=== PATIENT | male | born 1950 | race Caucasian/White ===

== ENCOUNTER 2020-03-25 19:57 | Observation (INO) | payer OTHER, SELFPAY ==
--- NOTE | ~2020-03-25 | CT_ITS ---
EXAMINATION: CT brain wo con DATE: 03/25/2020 21:43 INDICATION: Altered mental state TECHNIQUE: Computed tomography (CT) of the head was performed without intravenous contrast. The mA wa s adjusted according to patient size. Iterative reconstruction technique was employed. Exam dose: 68 1.00 mGy-cm total exam DLP. COMPARISON: 09/18/2018 CT brain FINDINGS: No intracranial mass lesion or hemorrhage, midline shift or mass effect or cerebrovascular accident is evident. Vertebral and basilar and carotid siphon internal carotid artery calcifications are noted. There is n onspecific diminished attenuation of the cerebral white matter, likely due to chronic small vessel is chemic changes. No subdural or epidural hematoma. There is a stable lytic lesion of the right occipital bone, unchanged since 09/08/2018 Otherwise no fracture or bone destruction of the cranial vault. IMPRESSION: Cerebral atherosclerosis and chronic small vessel ischemic changes of the cerebral white matter Stable lytic lesion of right occipital bone since 09/18/2018 Reviewed, dictated and finalized at [facility] Reviewed, dictated and finalized at [facility].
--- NOTE | ~2020-03-25 | XR_ITS ---
EXAMINATION: XR chest 1V portable INDICATION: Shortness of breath TECHNIQUE: Portable AP chest at 2100 hours COMPARISON: 12/04/2015 FINDINGS: The lungs are free of acute opacities. There is no pleural effusion or pneumothorax. The ca rdiomediastinal silhouette is normal. The visualized bones and soft tissues are unremarkable. IMPRESSION: 1. No acute cardiopulmonary abnormality. Reviewed, dictated and finalized at [facility].
[2020-03-25 20:00] VITALS: BP 108/96; PULSE 98; RESP 20; TEMP 36.6; O2SAT 96
--- NOTE | 2020-03-25 20:36 | ED.SOB ---
HPI - SOB/Dyspnea General Chief Complaint: Shortness of Breath/Dyspnea Stated Complaint: sob Time Seen by Provider: 03/25/20 20:35 Source: patient, family and EMS Mode of arrival: EMS Limitations: clinical condition History of Present Illness HPI Narrative: Patient is a 69-year-old male with a history of referral vascular disease, COPD, lumbar spondylosis, hyperlipidemia who presents for evaluation of shortness of breath. Patient reportedly began to feel short of breath this evening after leaving [employer], so an ambulance was called. Patient was given a DuoNeb in route for audible wheezing, and patient was brought here for assessment. Time of assessment, patient reports shortness of breath has resolved. He denies chest pain. 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 Patient is very anxious appearing, rhythmic motion to arms and legs, she states he is very clicky. Patient denying alcohol use today, but patient appears very intoxicated to me. Related Data Home Medications Medication Instructions Recorded Confirmed aspirin 81 mg tablet,delayed 81 mg PO DAILY 08/13/19 release gabapentin 300 mg capsule 300 mg PO TID 08/13/19 clopidogrel 03/25/20 Allergies Allergy/AdvReac Type Severity Reaction Status Date / Time bee pollen Allergy Severe SOB Verified 03/25/20 20:10 Penicillins Allergy Unknown SOB Verified 03/25/20 20:10 Review of Systems Review of Systems: ROS unobtainable: Yes unobtainable due to mental status PMFSH Past Medical History Medical History Atherosclerosis of aorta without gangrene Chronic pain Chronic pain disorder Inflammatory arthritis Neuropathy PVD (peripheral vascular disease) with claudication Spondylolysis, thoracolumbar region Surgical History Surgical History S/P insertion of iliac artery stent Family History Family History (Updated 03/23/15 @ 13:55 by DOCTOR UNKNOWN) Father Family history of heart disease in male family member before age 55 Patient's father is Mother Family history of heart disease in male family member before age 55 Patient's mother is Social History Social History Smoking status: Former smoker Tobacco type: cigarettes Second hand tobacco smoke exposure: No Smoking end date: 09/01/15 Alcohol intake: current Substance use: never Substance use type: does not use Gender identity (if verbalized by the patient): Male Exam Narrative: Exam Narrative: GENERAL: Awake, alert, conversant, anxious, intoxicated HEAD: Normocephalic, atraumatic. EYES: PERRLA and EOMI. ENT: Nares clear, no rhinorrhea or epistaxis. Mucous membranes moist. NECK: Supple. CHEST: No respiratory distress, breathing even and non labored, mild expiratory wheezing bilateral lower lobes HEART: Regular rate, sinus rhythm ABDOMEN:Non distended, non tender EXTREMITIES: Normal range of motion. No edema. SKIN: Warm, dry, no rash. NEURO:No focal deficits. Alert and oriented x2, oriented to person place, not oriented to time, can identify the president Course Vital Signs Vital signs: Vital Signs Temperature 36.6 C 03/25/20 20:00 Pulse Rate 98 03/25/20 20:00 Respiratory Rate 20 03/25/20 20:00 Blood Pressure 108/96 H 03/25/20 20:00 Pulse Oximetry 96 03/25/20 20:00 Temperature 36.6 C 03/25/20 20:00 Pulse Rate 82 03/26/20 01:00 Respiratory Rate 14 03/26/20 01:00 Blood Pressure 107/87 03/26/20 01:00 Pulse Oximetry 98 03/26/20 01:00 MDM - SOB/Dyspnea MDM Narrative Medical decision making narrative: Patient given a Duo
--- NOTE | 2020-03-25 20:46 | ECG_ITS ---
Measurements Intervals [place] Rate: 89 P: 66 MD: 138 QRS: 68 QRSD: 137 T: 50 QT: 434 QTc: 529 Interpretive Statements SINUS RHYTHM RIGHT BUNDLE BRANCH BLOCK ABNORMAL ECG Electronically Signed On 03-26-2020 7:11:43 CDT by Jones Moss D.O.
[2020-03-25] MEDS: ALBUTEROL SULFATE NEB 2.5 MG/0.5 ML INH 5 MG INHALATION (21:03)
[2020-03-25] MEDS: IPRATROPIUM BR 0.02% INH SOLN 0.5 MG/2.5 ML VIAL INHALATION (21:03)
[2020-03-25 21:12] VITALS: PULSE 98; RESP 16
[2020-03-25 21:14] LABS: Alveolar/Arterial O2 Gradient 43.9 mmHg; Base Excess ABG -2.8 mEq/l (+/-2.0); Fractional Inspired Oxygen 21 %; HCO3 ABG 20.4 mEq/l (22.0-26.0); Oxygen Content ABG 19.3 %vol (16.0-22.0); Oxygen Saturation ABG 94.3 % (95.0-100.0); Oxyhemoglobin 89.7 % THb (90.0-100.0); PCO2 ABG 31.5 mmHg (35.0-45.0); PO2 ABG 68.1 mmHg (80.0-100.0); PO2 FiO2 Ratio Arterial Blood 3.24 %; Total Hemoglobin 15.3 g/dL (12.0-18.0); pH ABG 7.429 (7.350-7.450)
[2020-03-25 21:15] VITALS: BP 102/63; PULSE 95; RESP 26; O2SAT 100
[2020-03-25 21:16] LABS: Device ROOM AIR; Modified Allen's Test Pass; Site Drawn RIGHT RADIAL
[2020-03-25 21:21] VITALS: PULSE 95; RESP 18
[2020-03-25 21:24] LABS: Basophils Absolute Auto 0.1 K/mm3 (0.0-0.1); Eosinophils Absolute Auto 0.4 K/mm3 (0-0.3); Eosinophils Percent Auto 3.9 % (0-4.4); Hematocrit 42.5 % (42.0-52.0); Hemoglobin 14.6 g/dL (14.0-18.0); Immature Granulocyte Absolute 0.03 K/mm3 (0.00-0.031); Immature Granulocyte Percent A 0.3 % (0-0.5); Lymphocytes Absolute Auto 2.17 K/mm3 (0.9-3.2); Lymphocytes Percent Auto 24.1 % (18.3-44.2); Mean Corpuscular HGB Conc 34.4 g/dl (32-36); Mean Corpuscular Hemoglobin 31.5 pg (26-34); Mean Corpuscular Volume 91.6 fl (80-100); Mean Platelet Volume 8.9 fl (7.4-10.4); Monocytes Absolute Auto 0.4 K/mm3 (0.1-0.6); Monocytes Percent Auto 4.1 % (2.6-8.5); Neutrophils Percent Auto 66.6 % (45.5-73.1); Platelet Count Result 253 k/mm3 (150-375); Red Blood Count 4.64 M/mm3 (4.6-6.20); Red Cell Distribution Width 13.4 % (11.5-14.5)
[2020-03-25 21:34] LABS: Partial Thromboplastin Time 27.2 SECONDS (22.3-36.8); Prothrombin Time 12.6 Seconds (11.1-14.7)
[2020-03-25 21:37] LABS: Lactic Acid Reflex 3.4 mmol/L (0.7-2.1)
[2020-03-25 21:38] LABS: Alanine Aminotransferase 13 U/L (4-50); Albumin Level 4.2 g/dL (3.5-5.1); Alkaline Phosphatase 93 U/L (38-126); Anion Gap 14.3 mmol/L (7-16); Aspartate Amino Transferase 26 U/L (17-59); Bilirubin,Total 0.4 mg/dL (0.2-1.3); Blood Urea Nitrogen 5 mg/dL (9-20); Carbon Dioxide 22 mmol/L (22-30); Chloride 102 mmol/L (98-107); Estimated CRCL calculation 56 ml/min; Estimated Glomerular Filt Rate > 60; Glucose 114 mg/dL (75-110); Potassium 3.3 mmol/L (3.4-5.0); Sodium 135 mmol/L (137-145)
[2020-03-25 21:39] LABS: Ethanol 187 mg/dL (<10)
[2020-03-25 21:50] LABS: Troponin I < 0.012 ng/mL (0.000-0.034)
[2020-03-25 22:02] LABS: Add Urine Microscopic? NO; Appearance Urine Clear (Clear); Bilirubin Urine Negative (Negative); Blood Urine Negative (Negative); Color Urine Colorless (Yellow); Glucose Urine UA Negative (Negative); Ketones Urine Negative (Negative); Leukocyte Esterase Ur Negative LEU/UL (Negative); Nitrate Urine Negative (Negative); Protein Urine Negative (Negative); Urobilinogen Urine Negative mg/dL (<2.0)
[2020-03-25] MEDS: methylPREDNISolone SOD SUCC 125 MG VIAL IV PUSH (22:09)
[2020-03-25 22:14] LABS: Specific Grav Ur 1.004 (1.001-1.035)
[2020-03-25 22:27] LABS: Barbiturate Screen Urine Negative (Negative); Benzodiazepines Screen Urine Negative (Negative)
[2020-03-25 22:28] LABS: Amphetamine Screen Urine Negative (Negative); Cannabinoid Screen Urine Positive (Negative); Cocaine Screen Urine Negative (Negative); Methadone Screen Urine Negative (Negative); Opiate Screen Urine Negative (Negative); Phencyclidine Screen Urine Negative (Negative)
[2020-03-25] MEDS: SODIUM CHLORIDE 0.9% IV 1,000 ML 999 ML IV CONT (22:46)
[2020-03-25 23:16] VITALS: BP 110/86; PULSE 90; RESP 18; O2SAT 99
[2020-03-26] VITALS (9 sets, daily range): BP systolic 107–149; BP diastolic 64–88; PULSE 78–94; RESP 14–20; TEMP 36.4–36.7; O2SAT 95–99; BMI 22.4
[2020-03-26 00:10] LABS: Lactic Acid 3.9 mmol/L (0.7-2.1)
[2020-03-26 00:22] LABS: Reflex Lactic Acid Yes or No Add Lactic
[2020-03-26] MEDS: SODIUM CHLORIDE 0.9% IV 1,000 ML 999 ML IV CONT (00:56)
[2020-03-26 01:06] LABS: Lactic Acid 4.1 mmol/L (0.7-2.1)
--- NOTE | 2020-03-26 01:48 | PC.NURSE ---
pt to ct via stretcher
--- NOTE | 2020-03-26 03:32 | ADMGEN ---
This patient, Rafael Méndez, was admitted to 3 [facility] Surg Room 333-01. Patient/family oriented to hospital policies and general routines including ID bracelet, bed and alarms, visiting hours, pain management, procedures, bathroom and other care routines, personal items, smoking policy, room service/diet, and visiting hours. Valuables list has been completed. Information on how to activate the Rapid Response Team has been discussed. Patient/Family are encouraged to report perceived risks to care and to ask questions if they do not understand what they are told or what they should do.
[2020-03-26 05:45] LABS: Lactic Acid 3.7 mmol/L (0.7-2.1)
[2020-03-26 10:17] LABS: Basophils Percent Auto 0.1 % (0.2-1.2); Hemoglobin 13.9 g/dL (14.0-18.0); Immature Granulocyte Absolute 0.07 K/mm3 (0.00-0.031); Immature Granulocyte Percent A 0.7 % (0-0.5); Lymphocytes Absolute Auto 0.61 K/mm3 (0.9-3.2); Lymphocytes Percent Auto 6.1 % (18.3-44.2); Mean Corpuscular HGB Conc 33.9 g/dl (32-36); Mean Corpuscular Hemoglobin 31.2 pg (26-34); Mean Corpuscular Volume 92.1 fl (80-100); Mean Platelet Volume 9.3 fl (7.4-10.4); Monocytes Percent Auto 0.4 % (2.6-8.5); Neutrophils Absolute Auto 9.3 K/mm3 (1.3-6.7); Neutrophils Percent Auto 92.7 % (45.5-73.1); Platelet Count Result 253 k/mm3 (150-375); Red Blood Count 4.45 M/mm3 (4.6-6.20); Red Cell Distribution Width 13.4 % (11.5-14.5)
[2020-03-26 10:23] LABS: Alanine Aminotransferase 14 U/L (4-50); Albumin Level 3.5 g/dL (3.5-5.1); Alkaline Phosphatase 86 U/L (38-126); Anion Gap 10.1 mmol/L (7-16); Aspartate Amino Transferase 20 U/L (17-59); Bilirubin,Total 0.3 mg/dL (0.2-1.3); Blood Urea Nitrogen 7 mg/dL (9-20); CRP 0.6 mg/dL (<1.0); Calcium 8.5 mg/dL (8.4-10.2); Carbon Dioxide 21 mmol/L (22-30); Chloride 112 mmol/L (98-107); Estimated CRCL calculation 70 ml/min; Estimated Glomerular Filt Rate > 60; Glucose 154 mg/dL (75-110); Magnesium 2.3 mg/dL (1.6-2.3); Potassium 4.1 mmol/L (3.4-5.0); Sodium 139 mmol/L (137-145)
[2020-03-26 10:28] LABS: Lactic Acid Reflex 2.8 mmol/L (0.7-2.1)
[2020-03-26 13:02] LABS: Reflex Lactic Acid Yes or No Add Lactic
[2020-03-26] MEDS: SODIUM CHLORIDE 0.9% IV 1,000 ML 125 ML IV CONT (13:14)
--- NOTE | 2020-03-26 15:42 | PM.IMHP ---
H&P: HPI History of Present Illness Chief complaint: lactic acidosis, dehydration, alcohol abuse Narrative: Rafael Méndez is a 69 year old male patient is 69-year-old male with a history of peripheral vascular disease, hypertension, COPD apparently patient was at the local restaurant and became shortness of breath EMS was called and patient was brought to the emergency department patient was quite confused and was intoxicated patient was given Solu-Medrol updraft which did improve his symptoms, patient did admit to drinking few alcoholic beverages prior to becoming shortness of breath, to further evaluate patient had a CT scan head which is negative for acute injury chest x-ray was negative for any pulmonary pathology, UA is benign however his urine drug tox showed alcohol of 184, also patient lactic acid was elevated 3.9, there was no sign symptoms of any infection to attribute lactic acid due to sepsis, most likely from alcohol and dehydration as patient lactic acid trended down with IV fluid, though there was no significant concerned for COVID-19, patient is being tested and patient in isolation, today patient states feeling better not as short of breath as when he arrived, patient denies any fever or chills, plan is to monitor patient overnight if COVID test is negative may possibly discharge home tomorrow Review of Systems Review of Systems: All systems reviewed & are unremarkable except as noted in HPI and below PMFSH Past Medical History Medical History Atherosclerosis of aorta without gangrene Chronic pain Chronic pain disorder Inflammatory arthritis Neuropathy PVD (peripheral vascular disease) with claudication Spondylolysis, thoracolumbar region Surgical History Surgical History S/P insertion of iliac artery stent Social History Social History Smoking status: Former smoker Tobacco type: cigarettes Second hand tobacco smoke exposure: No Smoking end date: 09/01/15 Alcohol intake: current Drinks per week: 3 Substance use: never Substance use type: does not use Gender identity (if verbalized by the patient): Male Sexual Orientation (if Verbalized by the Patient): Straight or Heterosexual Spiritual care concerns: No Meds Home Medications and Allergies Home Medications Medication Instructions Recorded Confirmed Type aspirin 81 mg tablet,delayed 81 mg PO DAILY 08/13/19 03/26/20 History release alprazolam 0.5 mg tablet 0.5 mg PO BID PRN #90 tablet 09/16/19 03/26/20 Rx azithromycin See Rx Instructions .ROUTE 03/25/20 Rx .COMPLEX #6 tablet budesonide-formoterol [Symbicort] 2 puff INHALATION Q12H 10 Days #1 03/25/20 Rx gm Allergies Allergy/AdvReac Type Severity Reaction Status Date / Time bee pollen Allergy Severe SOB Verified 03/25/20 20:10 Penicillins Allergy Unknown SOB Verified 03/25/20 20:10 Vital Signs Vital Signs - 24 hr 03/25/20 20:00 03/25/20 21:12 03/25/20 21:15 Temperature 98 F Pulse Rate 98 98 95 Respiratory Rate 20 16 26 H Blood Pressure 108/96 H 102/63 Pulse Oximetry 96 100 03/25/20 21:21 03/25/20 23:16 03/26/20 01:00 Temperature Pulse Rate 95 90 82 Respiratory Rate 18 18 14 Blood Pressure 110/86 107/87 Pulse Oximetry 99 98 03/26/20 02:43 03/26/20 02:55 03/26/20 06:00 Temperature 97.5 F L 97.5 F L Pulse Rate 87 82 94 Respiratory Rate 16 16 20 Blood Pressure 115/88 117/65 149/71 H Pulse Oximetry 99 99 99 03/26/20 10:00 03/26/20 14:00 Temperature 97.6 F 97.6 F Pulse Rate 93 92 Respiratory Rate 16 16 Blood Pressure 136/64 141/67 H Pulse Oximetry 98 97 Exam Narrative: Exam Narrative: patient is seen but not examined, temperature is 97.6?, pulse is 92, respiratory 16, pulse ox 97% on room air, blood pressure is 141/67 Const: General: comfortable and
[2020-03-26] MEDS: CLOPIDOGREL BISULFATE 75 MG TABLET PO (18:13)
[2020-03-26] MEDS: chlordiazePOXIDE 25 MG CAPSULE 50 MG PO (18:13)
[2020-03-27] MEDS: chlordiazePOXIDE 25 MG CAPSULE 50 MG PO ×3 (00:50→13:11)
[2020-03-27] MEDS: SODIUM CHLORIDE 0.9% IV 1,000 ML 125 ML IV CONT ×2 (02:10→13:11)
[2020-03-27 06:00] VITALS: BP 133/80; PULSE 77; RESP 18; TEMP 36.4; O2SAT 100
[2020-03-27 07:12] LABS: Magnesium 2.2 mg/dL (1.6-2.3)
[2020-03-27 07:53] LABS: Basophils Percent Auto 0.1 % (0.2-1.2); Hematocrit 38.8 % (42.0-52.0); Hemoglobin 12.9 g/dL (14.0-18.0); Immature Granulocyte Absolute 0.06 K/mm3 (0.00-0.031); Immature Granulocyte Percent A 0.4 % (0-0.5); Lymphocytes Absolute Auto 1.62 K/mm3 (0.9-3.2); Lymphocytes Percent Auto 11.3 % (18.3-44.2); Mean Corpuscular HGB Conc 33.2 g/dl (32-36); Mean Corpuscular Hemoglobin 30.9 pg (26-34); Mean Platelet Volume 9.4 fl (7.4-10.4); Monocytes Absolute Auto 0.6 K/mm3 (0.1-0.6); Neutrophils Absolute Auto 12.1 K/mm3 (1.3-6.7); Neutrophils Percent Auto 84.2 % (45.5-73.1); Platelet Count Result 231 k/mm3 (150-375); Red Blood Count 4.17 M/mm3 (4.6-6.20); Red Cell Distribution Width 13.9 % (11.5-14.5); White Blood Count 14.4 K/mm3 (4.5-10.0)
[2020-03-27 07:56] LABS: Alanine Aminotransferase 10 U/L (4-50); Albumin Level 3.1 g/dL (3.5-5.1); Alkaline Phosphatase 73 U/L (38-126); Anion Gap 6.9 mmol/L (7-16); Aspartate Amino Transferase 19 U/L (17-59); Bilirubin,Total 0.4 mg/dL (0.2-1.3); Blood Urea Nitrogen 12 mg/dL (9-20); CRP < 0.5 mg/dL (<1.0); Calcium 8.4 mg/dL (8.4-10.2); Carbon Dioxide 23 mmol/L (22-30); Chloride 111 mmol/L (98-107); Estimated CRCL calculation 70 ml/min; Estimated Glomerular Filt Rate > 60; Glucose 115 mg/dL (75-110); Potassium 3.9 mmol/L (3.4-5.0); Sodium 137 mmol/L (137-145)
[2020-03-27 08:00] VITALS: PULSE 10
[2020-03-27] MEDS: CLOPIDOGREL BISULFATE 75 MG TABLET PO (08:15)
[2020-03-27 10:00] VITALS: BP 144/70; PULSE 83; RESP 18; O2SAT 98
[2020-03-27 12:45] VITALS: PULSE 104
--- NOTE | 2020-03-27 16:22 | PM.DS ---
DS: Admitting Diagnosis Admitting Diagnosis Admitting Diagnosis: Chronic obstructive pulmonary disease with (acute) exacerbation DS: Discharge Diagnosis Discharge Diagnosis (1) Acute exacerbation of chronic obstructive airways disease: Code(s): J44.1 - Chronic obstructive pulmonary disease with (acute) exacerbation Status: Acute Assessment and Plan: Rafael Méndez is a 69 year old male patient is 69-year-old male with a history of peripheral vascular disease, hypertension, COPD apparently patient was at the local restaurant and became shortness of breath EMS was called and patient was brought to the emergency department patient was quite confused and was intoxicated patient was given Solu-Medrol updraft which did improve his symptoms, patient did admit to drinking few alcoholic beverages prior to becoming shortness of breath, to further evaluate patient had a CT scan head which is negative for acute injury chest x-ray was negative for any pulmonary pathology, UA is benign however his urine drug tox showed alcohol of 184, also patient lactic acid was elevated 3.9, there was no sign symptoms of any infection to attribute lactic acid due to sepsis, most likely from alcohol and dehydration as patient lactic acid trended down with IV fluid, though there was no significant concerned for COVID-19, patient is being tested and patient in isolation, today patient states feeling better not as short of breath as when he arrived, patient denies any fever or chills, plan is to monitor patient overnight if COVID test is negative may possibly discharge home tomorrow (2) Alcohol intoxication: Qualifiers: Complication of substance-induced condition: uncomplicated Qualified Code(s): F10.920 - Alcohol use, unspecified with intoxication, uncomplicated Code(s): F10.929 - Alcohol use, unspecified with intoxication, unspecified Status: Acute Assessment and Plan: upon arrival patient blood alcohollevel was 184, placed the patient on CIWA protocol and will monitor (3) Acidosis, lactic: Code(s): E87.2 - Acidosis Status: Acute Assessment and Plan: etiology uncertain unlikely infectious, most likely dehydration from alcohol patient is being hydrated lactic acid now close to normal (4) COVID-19 ruled out: Code(s): Z03.818 - Encounter for observation for suspected exposure to other biological agents ruled out Status: Acute Assessment and Plan: patient is in isolation will monitor and follow-up on the test DS: Summary Hospital Course Reason for hospitalization: Chief complaint: lactic acidosis, dehydration, alcohol abuse Narrative: Rafael Méndez is a 69 year old male patient is 69-year-old male with a history of peripheral vascular disease, hypertension, COPD apparently patient was at the local restaurant and became shortness of breath EMS was called and patient was brought to the emergency department patient was quite confused and was intoxicated patient was given Solu-Medrol updraft which did improve his symptoms, patient did admit to drinking few alcoholic beverages prior to becoming shortness of breath, to further evaluate patient had a CT scan head which is negative for acute injury chest x-ray was negative for any pulmonary pathology, UA is benign however his urine drug tox showed alcohol of 184, also patient lactic acid was elevated 3.9, there was no sign symptoms of any infection to attribute lactic acid due to sepsis, most likely from alcohol and dehydration as patient lactic acid trended down with IV fluid, though there was no significant concerned for COVID-19, patient is being tested and patient in isolation, today patient states feeling better not as short of breath as when he arrived, patient denies any fever or chills, plan is to monitor patient overnight if COVID test is negative may possibly discharge home tomorrow Hospital Course: Rafael Méndez is a 69 year
[2020-03-28 09:01] LABS: SARS-CoV-2 RNA PCR Negative
== END 2020-03-27 16:55 | disposition home or self-care (01) ==
LOC: ANHED 03-26 01:08 → ANH3MEDSUR 03-26 23:25
PROVIDERS: Admitting Provider Internal Medicine; Emergency Provider Emergency Medicine; PCP Family Medicine; Visit Provider Family Medicine
DX: J44.1 Chronic obstructive pulmonary disease with (acute) exacerbation (principal); F10.920 Alcohol use, unspecified with intoxication, uncomplicated; E87.2 Acidosis; Z20.828 Contact with and (suspected) exposure to other viral communicable diseases; I10 Essential (primary) hypertension; E86.0 Dehydration; I73.9 Peripheral vascular disease, unspecified; M47.815 Spondylosis without myelopathy or radiculopathy, thoracolumbar region; G89.29 Other chronic pain; G62.9 Polyneuropathy, unspecified; I70.0 Atherosclerosis of aorta; Z87.891 Personal history of nicotine dependence; Z79.82 Long term (current) use of aspirin; Z79.899 Other long term (current) drug therapy
CPT/HCPCS: 36415; 36600; 70450; 71045; 80053; 80307; 81003; 82805; 83605; 83735; 84484; 85025; 85610; 85730; 86140; 87040; 87635; 93005; 94640; 96361; 96374; 96375; 99285; A9270; C9803; G0378; J2060; J2930; J3411; J3475; J7030; J7042; U0003

== ENCOUNTER 2024-05-11 08:08 | Outpatient (CLI) | payer OTHER, SELFPAY ==
--- NOTE | ~2024-05-11 | CT_ITS ---
CT Scan of the Chest without Contrast: Clinical Indication: Lung cancer screening, nicotine dependence Technique: Contiguous sections were acquired throughout the chest without intravenous contrast. Dose reduction technique was used on this scan by utilizing automated exposure control and iterative recon struction technique. The dose-length product (DLP) was 75.00 mGy-cm. Findings: There is no evidence of any significant mediastinal, hilar or axillary lymphadenopathy. There are ext ensive atherosclerotic calcifications of the aorta and coronary arteries. There is no evidence of pleural or pericardial effusion. The lungs are clear. No pulmonary nodules or infiltrates are noted. Images through the upper abdomen reveal no abnormalities. Impression: Lung RADS 1: Negative. 12 month follow-up screening CT advised. Reviewed, dictated and finalized at [facility]. Impression: Lung RADS 1: Negative. 12 month follow-up screening CT advised.
[2024-05-11 08:15] LABS: Basophils Absolute Auto 0.1 K/mm3 (0.0-0.1); Basophils Percent Auto 1.2 % (0.2-1.2); Eosinophils Absolute Auto 0.4 K/mm3 (0-0.3); Eosinophils Percent Auto 5.3 % (0-4.4); Immature Granulocyte Absolute 0.03 K/mm3 (0.00-0.031); Immature Granulocyte Percent A 0.4 % (0-0.5); Lymphocytes Absolute Auto 1.38 K/mm3 (0.9-3.2); Lymphocytes Percent Auto 18.7 % (18.3-44.2); Mean Corpuscular HGB Conc 32.5 g/dl (32-36); Mean Corpuscular Volume 92.4 fl (80-100); Monocytes Absolute Auto 0.7 K/mm3 (0.1-0.6); Monocytes Percent Auto 9.1 % (2.6-8.5); Neutrophils Absolute Auto 4.8 K/mm3 (1.3-6.7); Neutrophils Percent Auto 65.3 % (45.5-73.1); Platelet Count Result 240 k/mm3 (150-375); Red Blood Count 4.33 M/mm3 (4.6-6.20); Red Cell Distribution Width 13.8 % (11.5-14.5); White Blood Count 7.4 K/mm3 (4.5-10.0)
[2024-05-11 08:31] LABS: Anion Gap 9 mmol/L (4-12); Blood Urea Nitrogen 20 mg/dL (9-20); Carbon Dioxide 28 mmol/L (22-30); Chloride 102 mmol/L (98-107); Potassium 4.4 mmol/L (3.4-5.0); Sodium 139 mmol/L (137-145)
[2024-05-11 08:32] LABS: Alanine Aminotransferase 15 U/L (6-50); Albumin Level 4.3 g/dL (3.5-5.1); Alkaline Phosphatase 86 U/L (38-126); Aspartate Amino Transferase 26 U/L (17-59); Bilirubin,Total 0.4 mg/dL (0.2-1.3); Calcium 9.6 mg/dL (8.4-10.2); Cholesterol 133 mg/dL (0-200); Estimated Glomerular Filt Rate 43; Glucose 91 mg/dL (65-110); HDL Direct 51 mg/dL; Triglycerides 112 mg/dL (<150)
[2024-05-11 08:43] LABS: LDL Cholesterol Direct 55 mg/dL
[2024-05-11 08:59] LABS: Prostate Specific Antigen 0.7 ng/mL (< OR = 4.0)
== END 2024-05-11 08:09 | disposition home or self-care (01) ==
PROVIDERS: PCP Family Medicine; Visit Provider Physician Assistant
DX: Z12.2 Encounter for screening for malignant neoplasm of respiratory organs (principal); E78.5 Hyperlipidemia, unspecified; I10 Essential (primary) hypertension; Z87.891 Personal history of nicotine dependence; Z12.5 Encounter for screening for malignant neoplasm of prostate
CPT/HCPCS: 36415; 71271; 80053; 80061; 84153; 85025; G0103

== ENCOUNTER 2024-07-16 07:18 | Outpatient (CLI) | payer OTHER, SELFPAY ==
[2024-07-16 07:53] LABS: Hematocrit 41.5 % (42.0-52.0); Hemoglobin 13.7 g/dL (14.0-18.0); Mean Corpuscular Hemoglobin 30.6 pg (26-34); Mean Corpuscular Volume 92.6 fl (80-100); Mean Platelet Volume 8.9 fl (7.4-10.4); Platelet Count Result 251 k/mm3 (150-375); Red Blood Count 4.48 M/mm3 (4.6-6.20); Red Cell Distribution Width 13.2 % (11.5-14.5); White Blood Count 9.5 K/mm3 (4.5-10.0)
[2024-07-16 08:14] LABS: Anion Gap 7 mmol/L (4-12); Blood Urea Nitrogen 25 mg/dL (9-20); Carbon Dioxide 27 mmol/L (22-30); Chloride 105 mmol/L (98-107); Cholesterol 139 mg/dL (0-200); Estimated Glomerular Filt Rate 37; Glucose 103 mg/dL (65-110); HDL Direct 50 mg/dL; Potassium 4.9 mmol/L (3.4-5.0); Sodium 139 mmol/L (137-145); Triglycerides 180 mg/dL (<150)
[2024-07-16 08:23] LABS: Iron 77 ug/dL (49-181)
[2024-07-16 08:24] LABS: LDL Cholesterol Direct 53 mg/dL
[2024-07-16 08:32] LABS: Percent Iron Saturation 26 % (20-50)
== END 2024-07-16 07:19 | disposition home or self-care (01) ==
PROVIDERS: PCP Family Medicine; Visit Provider Physician Assistant
DX: E78.5 Hyperlipidemia, unspecified (principal); D64.9 Anemia, unspecified; N17.9 Acute kidney failure, unspecified
CPT/HCPCS: 36415; 80048; 80061; 83540; 83550; 85027

== ENCOUNTER 2024-12-01 10:50 | Outpatient (CLI) | payer OTHER, SELFPAY ==
[2024-12-01 11:54] LABS: Anion Gap 9 mmol/L (4-12); Blood Urea Nitrogen 28 mg/dL (9-20); Calcium 9.6 mg/dL (8.4-10.2); Carbon Dioxide 26 mmol/L (22-30); Chloride 102 mmol/L (98-107); Estimated Glomerular Filt Rate 44; Glucose 98 mg/dL (65-110); Potassium 4.4 mmol/L (3.4-5.0); Sodium 137 mmol/L (137-145)
--- OUTSIDE RECORDS SUMMARY | 2024-12-01 12:27 | XMS_ITS | Referral Summary ---
Author Organization [facility] Address [facility] [place] [address] Care Team Providers Care Auto Body Detailer Name Role Phone Lani Boles MD Primary Care Provider Michael Pereira MD Unavailable [phone] Allergies Active Allergy Reactions Criticality Noted Date Comments Bee Venom Protein (Honey Bee) Hives Medium 2021 Codeine Nausea only Low 09/07/2022 Penicillin G Hives Medium 11/23/2018 Medications ALPRAZolam (XANAX) 0.5 mg tablet Take 1 tablet (0.5 mg total) by mouth 2 (two) times a day 5 9 Active aspirin 81 mg enteric coated tablet Active atorvastatin (LIPITOR) 80 mg tabletIndicatio ns:hyperlipidem ia Take 1 tablet (80 mg total) by mouth daily 30 tablet 3 Active clopidogreL (PLAVIX) 75 mg tablet Take 1 tablet (75 mg total) by mouth daily 30 tablet 3 Active ezetimibe (ZETIA) 10 mg tablet Take 1 tablet (10 mg total) by mouth daily Active cloNIDine (CATAPRES) 0.1 mg tabletIndicatio ns:hypertension Take 1 tablet (0.1 mg total) by mouth daily Active nebivoloL (BYSTOLIC) 10 mg tablet Take 1 tablet (10 mg total) by mouth daily Active clobetasoL (TEMOVATE) 0.05 % ointment APPLY TOPICALLY EVERY DAY AT BEDTIME 3 Active Active Problems Problem Noted Date Diagnosed Date Primary hypertension 06/20/2023 Hyperlipidemia 09/11/2022 Assessment & Plan (09/11/2022 12:30 PM [facility]): LDL on admission was 96. -Continue Atorvastatin 80mg daily. Goal LDL for secondary stroke prevention is <70. Slurred speech 09/07/2022 Acute ischemic right MCA stroke 09/07/2022 Assessment & Plan (09/11/2022 4:20 PM [facility]): Pt with a hx of CVA s/p left carotid endarterectomy (04/2022) presenting to [facility] on 09/07/2022 with left sided facial droop, slurred speech and left sided weakness. Admitted to the neurology service. -CTA/CTP: +right MCA CVA s/p TPA at 1700 on 09/07/2022). He recovered with resolved L sided weakness/dysarthria. -The patient was a candidate for tPA and was not a candidate for thrombectomy (low NIHSS; enrolled in ENDOLOW trial, randomized to medical arm). -09/09: s/p diagnostic cerebral angiogram to better evaluate degree of stenosis of R ICA. Angiography showed calcified atherosclerotic plaque at right common carotid bifurcation with 70% stenosis. -Vascular surgery consulted for intervention 09/09. Patient was loaded with plavix 300mg on 09/09 and continued on plavix 75mg daily, as well as aspirin. -09/11: s/p OR for TCAR procedure. - OU status -CLD - torrez care, to be removed after AM rounds tomorrow - PT/OT ordered for POD 1 -Continue ASA, Plavix and statin Claudication 02/03/2020 Overview (02/03/2020): Added automatically from request for surgery [id number] Encounter for surgical after care following surgery on the circulatory system 01/25/2020 Bilateral carotid artery stenosis 01/25/2020 Assessment & Plan (09/11/2022 12:25 PM [facility]VIS[facility] RO[facility]): Hx of CVA s/p left carotid endarterectomy (04/2022) now +right MCA CVA s/p TPA at 1700 on 09/07/2022). -He recovered with resolved L sided weakness/dysarthria. -s/p OR 09/11 for TECAR (see ischemic stroke problem list for details) -Continue ASA, Plavix and statin Right foot pain 11/03/2018 Resolved Problems Problem Noted Date Diagnosed Date Resolved Date RBBB (right bundle branch block) 09/11/2022 09/11/2022 Social History Tobacco Use Types Packs/Day Years Used Date Smoking Tobacco: Former Cigarettes S tarted: 03/17/2020 Smokeless Tobacco: Never Tobacco Cessation:Counseling Given: Not Answered Alcohol Use Standard Drinks/Week Comments Yes 0 (1 standard drink = 0.6 oz pur e alcohol) Social Connection and Isolat ion Panel [NHANES] Answer Date Recorded In a typical week, how many times do you talk on the phone with family, friends, or neighbors? More than three times a week 09/08/2022 How often do you get togethe r with friends or relatives? More than three times a week 09/08/2022 How often do you attend chur or hindu services? Never 09/08/2022 Do you belong to any clubs o r organizations such as mormon groups, unions, fraternal or athletic groups, or school groups? No 09/08/2022 How often do you attend meet ings of the clubs or organizations you belong to? Never 09/08/2022 Are you , , di vorced, , never , or living with a partner? 09/08/2022 AUDIT-C Answer Date Recorded Q1: How often do you have a drink containing alc ohol? 2-4 times a month 09/11/2022 Q2: How many drinks containi ng alcohol do you have on a typical day when you are drinking? 1 or 2 09/11/2022 Q3: How often do you have si x or more drinks on one occasion? Never 09/11/2022 Overall Financial Resource Strain (CARDIA) Answe r Date Recorded How hard is it for you to pa y for the very basics like food, housing, medical care, and heating? Not hard at all 09/08/2022 PHQ-2 Answer Date Recorded PHQ-2 Total Score 0 09/08/2022 Hunger Vital Sign Answer Date Recorded Within the past 12 months, y ou worried that your food would run out before you got the money to buy more. Never true 09/12/19 23 Within the past 12 months, t he food you bought just didn't last and you didn't have money to get more. Never true 09/12/2022 PRAPARE - Transportation Answer Date Re corded In the past 12 months, has l ack of transportation kept you from medical appointments or from getting medications? No 04/2023 In the past 12 months, has l ack of transportation kept you from meetings, work, or from getting things needed for daily living? No 09/08/2022 Housing Stability Vital Sign Answer Haresh e Recorded In the last 12 months, was t here a time when you were not able to pay the mortgage or rent on time? No 09/12/2022 In the last 12 months, how many places have you lived? 1 09/12/2022 In the last 12 months, was t here a time when you did not have a steady place to sleep or slept in a senior living (including now)? 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[employer] Gender Identity Not on file Sexual Orientation Not on file Last Filed Vital Signs Vital Sign Reading Time Taken Comments Blood Pressure 177/81 07/09/2024 8:17 AM [facility] Pulse 68 07/09/2024 8:17 AM [facility] Temperature 36.5 C (97.7 F) 01/23/2024 8:20 AM CDT Respiratory Rate 18 09/13/2022 5:45 AM [facility] Oxygen Saturation 98% 07/09/2024 8:17 AM [facility] Inhaled Oxygen Concentration - - Weight 58.1 kg (128 lb) 07/09/2024 8:17 AM [facility] RO[facility] Height 170.2 cm (5' 7 ) 01/23/2024 8:20 AM CDT Body Mass Index 20.05 01/23/2024 8:20 AM CDT Plan of Treatment Not on file Medical Devices Implanted Type Area Horn Player Device Identifier Shelf Expiration Date Model / Serial / Lot Stent Stent Left: Groin [employer] Enroute [employer] Flex 8mm .065in 40mm 57cm Delivery System Angle Tip [id number]-[id number] - S - [id number] Implanted:Qty: 1 on 09/11/2022 by Michael Pereira MD at [facility] Stent Right: Neck [employer] [id number] 03/31/2024 [id number]-0840-[id number] S / / [id number] Description:Right internal c arotid artery [employer] [id number] Icast 8mm 7fr 38mm 80cm Cover Catheter Introducer Balloon Expand - [id number] - [id number] Implanted:Qty: 1 on 02/16/2020 by Michael Pereira MD at [facility] [employer] 09/27/2022 [id number] / [id number] / [employer] Starclose Se 6fr Clip Vascular Device Closure Nitinol Sterile [id number] - [id number] Implanted:Qty: 1 on 09/09/2022 at [facility] [employer] 04/01/2024 [id number] / / [id number] Procedures Procedure Name Priority Date/Time Associated Diagnosis Comments CTA ABDOMINAL AORTA AND BILATERAL ILIOFEMORAL RUNOFF Schedule Routine, Read Routine (OP Routine) 01/28/2020 2:53 PM CDT Aftercare following surgery of the circulatory system from Last 3 Months or Most Recently Relevant to Health Maintenance Results * CTA Abdominal Aorta And Bilateral Iliofemoral Runoff (01/28/2020 2:53 PM CDT) Anatomical Region Laterality Modality Body Bilateral Computed Tomogra phy 01/28/2020 4:17 PM CDT Impressions 01/28/2020 4:18 PM CDT 1. Right lower extremity: Similar mild to moderate multifocal inflow disease. Two-vessel runoff (anterior tibial and posterior tibial arteries). 2. Left lower extremity: Occlusion of the left common iliac stent with reconstitution via the left internal iliac artery. Two-vessel runoff (anterior tibial and posterior tibial arteries). Dictated by: Kingsley Saul M.D. The radiology attending physician has personally reviewed this study, and had reviewed and/or edited this written report and agrees with it. Electronically signed by: Naomie Quintero M.D. Narrative 01/28/2020 4:18 PM CDT EXAMINATION: CT ANGIOGRAPHY OF THE ABDOMEN, PELVIS, AND LOWER EXTREMITIES WITH CONTRAST HISTORY: Peripheral arterial disease. Left iliac stent placement 2018. Worsening left leg claudication. TECHNIQUE: CT angiography of the abdomen, pelvis, and lower extremities was performed following the uneventful intravenous administration of 125 ml Optiray-350. Vascular 3D images were generated on a dedicated workstation and also reviewed. FINDINGS: 11/07/2017 VASCULAR FINDINGS: Abdominal Aorta and Branches: Celiac axis: no significant stenosis SMA: no significant stenosis LAWRENCE: no significant stenosis Right renal vessels: Unchanged stenosis at its origin due to mixed plaque. Left renal vessels: 2 left renal arteries. Unchanged stenosis at the origin. Infrarenal aorta: Stable ectasia of the infrarenal abdominal aorta, measuring up to 2.4 cm. Pelvic Vessels: R. Common iliac artery: Moderate stenosis due to atherosclerosis R. External iliac artery: no significant stenosis R. Internal iliac artery: no significant stenosis L. Common iliac artery: Interval stent placement within the left common iliac artery. Stent is occluded. L. External iliac artery: Opacifies via retrograde flow from the internal iliac artery L. Internal iliac artery: Moderate stenosis Right Lower Extremity: R. Common femoral artery: no significant stenosis R. Profunda femoris artery: no significant stenosis R. Superficial femoral artery: Moderate multifocal stenosis in its mid to distal segment R. Popliteal artery: Unchanged mild to moderate stenosis R. Anterior tibial artery: no significant stenosis R. Tibioperoneal trunk: no significant stenosis R. Posterior tibial artery: no significant stenosis R. Peroneal artery: Opacifies to the level of the distal leg R. Dorsalis pedis artery: no significant stenosis R. Plantar artery: no significant stenosis Left Lower Extremity: L. Common femoral artery: no significant stenosis L. Profunda femoris artery: no significant stenosis L. Superficial femoral artery: Unchanged mild to moderate multifocal stenosis multifocal stenosis. L. Popliteal artery: Mild stenosis L. Anterior tibial artery: no significant stenosis L. Tibioperoneal trunk: Moderate stenosis L. Posterior tibial artery: no significant stenosis L. Peroneal artery: Opacifies to the level of the distal leg L. Dorsalis pedis artery: no significant stenosis L. Plantar artery: no significant stenosis NON-VASCULAR FINDINGS: Limited images of the lung bases are unremarkable.. The liver is normal. The gallbladder is normal motion of interest extrahepatic periductal dilatation. The pancreas and spleen appear normal, though the study is mildly motion limited. The adrenal glands are normal. The kidneys are normal. No hydronephrosis or renal stone. Urinary bladder is normal. Prostate is normal. The colon is normal in course and caliber without wall thickening or evidence of obstruction. Stomach is normal. Small bowel is nondilated. A distended iliopsoas bursa on the right has increased in size. No free intraperitoneal gas or fluid. No inguinal, pelvic, retroperitoneal or mesenteric adenopathy. Procedure Note Naomie Quintero MD - 01/28/2020 EXAMINATION: CT ANGIOGRAPHY OF THE ABDOMEN, PELVIS, AND LOWER EXTREMITIES WITH CONTRAST HISTORY: Peripheral arterial disease. Left iliac stent placement 2018. Worsening left leg claudication. TECHNIQUE: CT angiography of the abdomen, pelvis, and lower extremities was performed following the uneventful intravenous administration of 125 ml Optiray-350. Vascular 3D images were generated on a dedicated workstation and also reviewed. FINDINGS: 11/07/2017 VASCULAR FINDINGS: Abdominal Aorta and Branches: Celiac axis: no significant stenosis SMA: no significant stenosis LAWRENCE: no significant stenosis Right renal vessels: Unchanged stenosis at its origin due to mixed plaque. Left renal vessels: 2 left renal arteries. Unchanged stenosis at the origin. Infrarenal aorta: Stable ectasia of the infrarenal abdominal aorta, measuring up to 2.4 cm. Pelvic Vessels: R. Common iliac artery: Moderate stenosis due to atherosclerosis R. External iliac artery: no significant stenosis R. Internal iliac artery: no significant stenosis L. Common iliac artery: Interval stent placement within the left common iliac artery. Stent is occluded. L. External iliac artery: Opacifies via retrograde flow from the internal iliac artery L. Internal iliac artery: Moderate stenosis Right Lower Extremity: R. Common femoral artery: no significant stenosis R. Profunda femoris artery: no significant stenosis R. Superficial femoral artery: Moderate multifocal stenosis in its mid to distal segment R. Popliteal artery: Unchanged mild to moderate stenosis R. Anterior tibial artery: no significant stenosis R. Tibioperoneal trunk: no significant stenosis R. Posterior tibial artery: no significant stenosis R. Peroneal artery: Opacifies to the level of the distal leg R. Dorsalis pedis artery: no significant stenosis R. Plantar artery: no significant stenosis Left Lower Extremity: L. Common femoral artery: no significant stenosis L. Profunda femoris artery: no significant stenosis L. Superficial femoral artery: Unchanged mild to moderate multifocal stenosis multifocal stenosis. L. Popliteal artery: Mild stenosis L. Anterior tibial artery: no significant stenosis L. Tibioperoneal trunk: Moderate stenosis L. Posterior tibial artery: no significant stenosis L. Peroneal artery: Opacifies to the level of the distal leg L. Dorsalis pedis artery: no significant stenosis L. Plantar artery: no significant stenosis NON-VASCULAR FINDINGS: Limited images of the lung bases are unremarkable.. The liver is normal. The gallbladder is normal motion of interest extrahepatic periductal dilatation. The pancreas and spleen appear normal, though the study is mildly motion limited. The adrenal glands are normal. The kidneys are normal. No hydronephrosis or renal stone. Urinary bladder is normal. Prostate is normal. The colon is normal in course and caliber without wall thickening or evidence of obstruction. Stomach is normal. Small bowel is nondilated. A distended iliopsoas bursa on the right has increased in size. No free intraperitoneal gas or fluid. No inguinal, pelvic, retroperitoneal or mesenteric adenopathy. IMPRESSION: 1. Right lower extremity: Similar mild to moderate multifocal inflow disease. Two-vessel runoff (anterior tibial and posterior tibial arteries). 2. Left lower extremity: Occlusion of the left common iliac stent with reconstitution via the left internal iliac artery. Two-vessel runoff (anterior tibial and posterior tibial arteries). Dictated by: Kingsley Saul M.D. The radiology attending physician has personally reviewed this study, and had reviewed and/or edited this written report and agrees with it. Electronically signed by: Naomie Quintero M.D. Paty Gayle NP IM CT PROCEDURES Final Result from Last 3 Months or Most Recently Relevant to Health Maintenance Insurance [facility] Member Subscriber Plan / Payer (Ef fective 2019-Present) Name:Rafael Méndez Relation to Subscriber:Self Name:Rafael Méndez Payer ID:[id number] (NAIC) Type:MEDICARE RISK OTHER [facility] [address] [facility] Member Subscriber Plan / Payer (Ef fective 2020-Present) Name:Rafael Méndez Relation to Subscriber:Self Name:Rafael Méndez Payer ID:[id number] (NAIC) Type:MEDICARE RISK OTHER Address: [address] [facility] [place] [id number] [place] Member Subscriber Plan / Payer (Ef fective 2019-Present) Name:Rafael Méndez Relation to Subscriber:Self Name:Dev Rafael D Payer ID:[id number] (NAIC) Type:MEDICARE RISK OTHER Address: [address] [facility] [place] [id number] Advance Directives For more information, please contact: [phone] * Full Code (Latest Code Status on File) Date Activated Date Inactivated Comments 09/12/2022 1:11 AM 09/13/2022 1:46 PM * Full Code Date Activated Date Inactivated Comments 09/07/2022 9:18 PM 09/12/2022 1:11 AM * Full Code Date Activated Date Inactivated Comments 02/16/2020 10:19 AM 02/16/2020 8:36 PM Care Teams Auto Body Detailer Relationship Specialty Start Date End Date Lani Boles MD [address] [place] [address] [id number] PCP - General 11/04/17 Michael Pereira MD [id number] [place] [address] Surgeon Vascular Surgery 09/12/22
--- OUTSIDE RECORDS SUMMARY | 2024-12-01 12:27 | XMS_ITS | Encounter Summary ---
Author Organization [facility] Address [address] [place] [address] Care Team Providers Care Financial Investigator Name Role Phone Lani Boles MD Primary Care Provider Michael Pereira MD Unavailable [phone] Encounter Details Date Type Department Care Team (Late st Contact Info) Description 02/10/2020 Telephone [facility] [address] [place] [address] Jatinder Avila, RT Social History Tobacco Use Types Packs/Day Years Used Date Smoking Tobacco: Some Days Cigarettes Smokeless Tobacco: Never Alcohol Use Standard Drinks/Week Comments Yes 0 (1 standard drink = 0.6 oz pur e alcohol) AUDIT-C Answer Date Recorded Frequency of Alcohol Consumption Monthly or less 01/25/2020 Average Number of Drinks Not on file 020 Frequency of Binge Drinking Not on file 12/31 Sex and Gender Information Value Date Recorded Sex Assigned at Not on file Legal Sex Male 6:14 AM STAND IN Gender Identity Not on file Sexual Orientation Not on file documented as of this encounter Plan of Treatment Not on file documented as of this encounter Visit Diagnoses Not on filedocumented in this encounter Care Teams Financial Investigator Relationship Specialty Start Date End Date Lani Boles MD [address] [facility] [address] [place] [address] PCP - General 11/04/17 Michael Pereira MD [id number] [place] [address] Surgeon Vascular Surgery 09/12/22 documented as of this encounter
--- OUTSIDE RECORDS SUMMARY | 2024-12-01 12:27 | XMS_ITS | Clinical Summary ---
Author Organization [facility] Address [facility] [place] [address] Care Team Providers Care Seismograph Shooter Name Role Phone Lani Boles MD Primary Care Provider Michael Pereira MD Unavailable Allergies Active Allergy Reactions Criticality Noted Date [...] 09/11/2022 Assessment & Plan (09/11/2022 12:30 PM RN PICU): LDL on admission was 96. -Continue Atorvastatin 80mg daily. Goal LDL for secondary stroke prevention is <70. Slurred speech 09/07/2022 Acute ischemic right MCA stroke 09/07/2022 Assessment & Plan (09/11/2022 4:20 PM RN PICU): Pt with a hx of CVA s/p left carotid endarterectomy (04/2022) presenting to [facility] on 09/07/2022 with left sided [...] (02/03/2020): Added automatically from request for surgery [id number] Encounter for surgical after care following surgery on the circulatory system 01/25/2020 Bilateral carotid artery stenosis 01/25/2020 Assessment & Plan (09/11/2022 12:25 PM RN PICU): Hx of CVA s/p left carotid endarterectomy (04/2022) now +right MCA CVA s/p TPA at 1700 on 09/07/2022). -He recovered with resolved L sided weakness/dysarthria. -s/p OR 09/11 for TECAR (see ischemic stroke problem list for details) -Continue ASA, Plavix and statin Right foot pain 11/03/2018 Resolved Problems Problem Noted Date Diagnosed Date Resolved Date RBBB (right bundle branch block) 09/11/2022 09/11/2022 Surgical History Surgery Date Site/Laterality Comments VASCULAR SURGERY 09/01/2019 - 08/31/2020 stent in left groin (iliac) 2017 c/b occlusion s/p balloon angioplasty and re-stenting 2019 CAROTID ENDARTERECTOMY 04/01/2022 - 05/01/2022 Left ANGIO SELECTIVE CAROTID DIRECTOR OF MAINTENANCE LEFT 09/09/2022 Left CAROTID STENT 09/11/2022 Right right (TCAR procedure) transcarotid angioplasty and stenting utilizing 8 x 40 mm ENROUTE transcarotid stent and cerebral protection utilizing reversal of flow Medical History Medical History Date Comments Hypercholesterolemia Family History Medical History Relation Name Comments Heart disease Father Family history of cardiac disorder - (Added by TW Conv) Aneurysm Mother Anesthesia problems Neg Hx Relation Name Status Comments Father Mother Social History Tobacco Use Types Packs/Day Years [...] How often do you attend chur or bahai services? Never 09/08/2022 Do you belong to any clubs o r organizations such as tenriism groups, unions, fraternal or athletic groups, or [...] place to sleep or slept in a custodial (including now)? No 09/12/2022 Personal Safety Answer Date Recorded Getting School Help Needed Denies 09/11 Sex and Gender Information Value Date Recorded Sex Assigned at Not on file Legal Sex Male 6:14 AM RN PICU Gender Identity Not on file Sexual Orientation Not on file Obstetrics History Last Filed Vital Signs Vital Sign Reading Time Taken Comments Blood Pressure 177/81 07/09/2024 8:17 AM RN PICU Pulse 68 07/09/2024 8:17 AM RN PICU Temperature 36.5 C (97.7 F) 01/23/2024 8:20 AM CDT Respiratory Rate 18 09/13/2022 5:45 AM RN PICU Oxygen Saturation 98% 07/09/2024 8:17 AM RN PICU Inhaled Oxygen Concentration - - Weight 58.1 kg (128 lb) 07/09/2024 8:17 AM RN PICU Height 170.2 cm (5' 7 ) 01/23/2024 8:20 AM CDT Body Mass Index 20.05 01/23/2024 8:20 AM CDT Plan of Treatment Health Maintenance Due Date Last Done Comments Colon Cancer Screening-Colonoscopy 1950 Hepatitis C Screening 1950 DTaP/Tdap/Td Vaccine (1 - Tdap) 1961 Hepatitis B Screening 1968 Pneumococcal vaccine 65+ (1 of 1 - PCV) 2000 Well Visit 65+ 11/15/2015 Zoster Vaccine (2 of 2) 05/15/2021 03/20/2021 Depression Screening 09/07/2023 09/07/2022, 09/07/19 Fall Risk Assessment 09/13/2023 09/13/2022 Influenza Vaccine (Season Ended) 2025 09/01/19 24, 06/01/2018 Abdominal Aortic Aneurysm (AAA) Screen Completed , 11/07/2017 Medical Devices Implanted Type Area Pawn Broker Device Identifier Shelf Expiration Date Model / Serial / Lot Stent Stent Left: Groin [employer] Enroute Uber Flex 8mm .065in 40mm 57cm Delivery System Angle Tip [id number]-[id number] - S - [id number] Implanted:Qty: 1 on 09/11/2022 by Michael Pereira MD at [facility] Stent Right: Neck [employer] [id number] 03/31/2024 SR-0840-[id number] S / / [id number] Description:Right internal c arotid artery [employer] 91564 Icast 8mm 7fr 38mm 80cm Cover Catheter Introducer Balloon Expand - [id number] - [id number] Implanted:Qty: 1 on 02/16/2020 by Michael Pereira MD at [facility] [employer] 09/27/2022 [id number] / [id number] / [employer] Starclose Se 6fr Clip Vascular Device Closure Nitinol Sterile 26212-16 - [id number] Implanted:Qty: 1 on 09/09/2022 at [facility] [employer] 04/01/2024 [id number] / / [id number] Procedures Procedure Name Priority Date/Time Associated [...] by: Naomie Quintero M.D. Paty Gayle NP IMG CT PROCEDURES Final Result from Last 3 Months or Most Recently Relevant to Health Maintenance Insurance [id number] [place] [address] [facility] Member Subscriber Plan / Payer (Ef fective 2019-Present) Name:Rafael Méndez Relation to Subscriber:Self Name:Rafael Méndez Payer ID:[id number] (NAIC) Type:MEDICARE RISK OTHER Address: [address] [facility] Advance Directives For more information, please contact: [phone] * Full Code (Latest Code Status on File) Date Activated Date Inactivated Comments 09/12/2022 1:11 AM 09/13/2022 1:46 PM * Full Code Date Activated Date Inactivated Comments 09/07/2022 9:18 PM 09/12/2022 1:11 AM * Full Code Date Activated Date Inactivated Comments 02/16/2020 10:19 AM 02/16/2020 8:36 PM Care Teams Seismograph Shooter Relationship Specialty Start Date End Date Lani Boles MD [address] [facility] [address] [place] [address] PCP - General 11/04/17 Michael Pereira MD [id number] [place] [address] Surgeon Vascular Surgery 09/12/22
--- OUTSIDE RECORDS SUMMARY | 2024-12-01 12:27 | XMS_ITS | Continuity of Care Document ---
Author Organization [facility] Address [address] [place] [address] Phone Care Team Providers Care Nurse Rn Bsn Name Role Phone Lindsey Macias NP Unavailable Unavailable Advance Directives Directive Yes / No Effective Date File Name No Information Encounters Encounter Description Practice Location Reason(s) For Visit Diagnoses Date Provider Providers Copied on Encounter [facility], [address] [place] [address], [id number], tel:[phone] [facility] No Information Gilberto Portillo. [address] [place] [address], [place] [address] [place], [id number] . tel: [phone] [facility], [address] [place] [address], [id number], tel:[phone] [facility] LONG-TERM USE MEDS NECSCRN KRISTIEIG NEOP-PROSTATEMIX ED HYPERLIPIDEMIA [place] Matthews. [address] [place] [address], [id number] , . tel: [phone] [facility], [address] [place] [address], [id number], tel:[phone] [facility] JOINT PAIN-SHLDER [place] Matthews. [address] [place] [address], [address], [id number] , . tel:[phone] Family History Family Member Type Diagnosis Age At Onset No Information Payers Payer name Insurance type Covered democrat ID Authoriza tion(s) No Information Social History Type Description Quantity Date Captured Comments Sex Male Smoking Status No Information Chief Complaint And Reason For Visit No Information Reason For Referral Reason For Referral No Information History Of Present Illness Encounter Date Complaint History Of Prese nt Illness No Information Functional Status Date Functional Assessmen t No Information Instructions Date Instruction Additional Infor mation No Information Assessments Type Assessment Date No Information Patient Care Teams Name Effective Dates (start - stop) Status Members No Information
--- OUTSIDE RECORDS SUMMARY | 2024-12-01 12:27 | XMS_ITS | Encounter Summary ---
Author Organization [facility] Address [address] [place] [address] Phone Care Team Providers Care Deaf Teacher Name Role Phone Lani Boles MD Primary Care Provider Michael Pereira MD Unavailable [phone] Encounter Details Date Type Department Care Team (Latest Contact Info) Description 11/11/2017 Orders Only [facility] CONVERSION Scanning, Provider Social History Tobacco Use Types Packs/Day Years Used Date Smoking Tobacco: Former Sex and Gender Information Value Date Recorded Sex Assigned at Not on file Legal 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 Gender Identity Not on file Sexual Orientation Not on file documented as of this encounter Plan of Treatment Not on file documented as of this encounter Procedures Procedure Name Priority Date/Time Associated Diagnosis Comments VASCULAR LABORATORY REPORT 11/11/2017 3:55 PM CDT documented in this encounter Results * VASCULAR LABORATORY REPORT (11/11/2017 3:55 PM CDT) Anatomical Region Laterality Modality Ultrasound us Provider Scanning CV VASCULAR PROCEDURES Edited Result - Final documented in this encounter Visit Diagnoses Not on filedocumented in this encounter Care Teams Deaf Teacher Relationship Specialty Start Date End Date Lani Boles MD [address] [place] [address] PCP - General 11/04/17 Michael Pereira MD [id number] [place] [address] Surgeon Vascular Surgery 09/12/22 documented as of this encounter
== END 2024-12-01 10:51 | disposition home or self-care (01) ==
LOC: ANHLAB 10:52
PROVIDERS: PCP Family Medicine; Visit Provider Student in an Organized Health Care Education/Training Program
DX: R79.89 Other specified abnormal findings of blood chemistry (principal)
CPT/HCPCS: 36415; 80048